=== PATIENT | female | born 1970 | race Caucasian/White ===

== ENCOUNTER 2016-06-05 08:02 | Day surgery (SDC) | payer OTHER ==
[~2016-06-05] VITALS: Ht 175.3 cm; Wt 137.9 kg
[~2016-06-05 08:02] MED LIST: BENTYL10 MG PO; CENTANY30 GM TP; CYANOCOBAL1000 MCG/2 IM; FOLIC ACID1 MG PO; HYDROCODON-ACE1 EAC7 PO; IMITREX100 MG PO; KEFLEX500 MG PO; LAMICTAL25 MG PO; PLAQUENIL200 MG PO; PREMARIN0.9 MG PO; PROMETHAZINE HC25 M1 PO; SONATA10 MG PO; SYNTHROID100 MCG PO; TOPAMAX50 MG PO; TRIANEX17 GM TP; VIIBRYD40 MG PO; XANAX0.5 MG PO; XIFAXAN200 MG PO; XIFAXAN550 MG PO; ZANTAC150 MG PO; ZYRTEC10 M2 PO
[2016-06-05 08:58] VITALS: BP 143/67
[2016-06-05 11:45] VITALS: BP 124/69
[2016-06-05 13:22] VITALS: BP 128/78
== END 2016-06-05 13:23 | disposition home or self-care (01) ==
LOC: SDC 08:02
DX: H35.371 Puckering of macula, right eye (principal); H35.341 Macular cyst, hole, or pseudohole, right eye; E03.9 Hypothyroidism, unspecified; K21.9 Gastro-esophageal reflux disease without esophagitis; M79.7 Fibromyalgia; M19.90 Unspecified osteoarthritis, unspecified site
CPT/HCPCS: J0690; J1100; J2250; J2795; J3010; J3300